=== PATIENT | female | born 1955 | race African-American/Black ===

== ENCOUNTER 2017-11-14 10:54 | Emergency (ER) | payer OTHER ==
[~2017-11-14] VITALS: Ht 170.2 cm; Wt 77.1 kg
[~2017-11-14 10:54] MED LIST: FEMARA2.5 MG PO; PRILOSEC10 MG; PROTONIX40 MG PO
== END 2017-11-14 18:27 | disposition home or self-care (01) ==
LOC: ER 10:54
DX: R14.0 Abdominal distension (gaseous) (principal); K59.09 Other constipation

== ENCOUNTER 2020-06-25 | Outpatient (CLI) | payer OTHER | END 2020-06-25 08:07 | disposition home or self-care (01) | LOC: PPH VACUNA | DX: Z23 Encounter for immunization (principal) ==

== ENCOUNTER 2020-07-16 14:59 | Outpatient (CLI) | payer OTHER | END 2020-07-16 15:00 | disposition home or self-care (01) | LOC: PPH VACUNA 14:59 | DX: Z23 Encounter for immunization (principal) ==

== ENCOUNTER → 2020-12-16 09:18 | Outpatient (CLI) | payer OTHER | END | disposition home or self-care (01) | LOC: NUCLEAR 09:00 | DX: R55 Syncope and collapse (principal); E78.5 Hyperlipidemia, unspecified ==

== ENCOUNTER 2020-12-16 11:25 | Outpatient (CLI) | payer OTHER | END 2020-12-16 11:46 | disposition home or self-care (01) | LOC: MAMO-SONO 11:25 | DX: C50.011 Malignant neoplasm of nipple and areola, right female breast (principal); Z85.3 Personal history of malignant neoplasm of breast; Z12.31 Encounter for screening mammogram for malignant neoplasm of breast ==

== ENCOUNTER → 2020-12-28 | Outpatient (CLI) | payer OTHER | END | disposition home or self-care (01) | LOC: NUCLEAR 07:30 | PROVIDERS: ATTEND Internal Medicine | DX: C50.011 Malignant neoplasm of nipple and areola, right female breast (principal); Z85.3 Personal history of malignant neoplasm of breast; Z08 Encounter for follow-up examination after completed treatment for malignant neoplasm | CPT/HCPCS: 78306; A9503 ==